=== PATIENT | female | born 1980 | race Caucasian/White ===

== ENCOUNTER 2017-12-01 11:13 | Emergency (ER) | payer OTHER ==
[~2017-12-01] VITALS: Ht 152.4 cm; Wt 86.0 kg
[2017-12-01] MEDS ORDERED: MAALOX/HYOSCYAMINE/LIDOCAINE 45 ML BTL ONE (11:42)
[2017-12-01] MEDS ORDERED: ONDANSETRON 2MG/ML, 2ML ONE (11:42)
[2017-12-01] MEDS ORDERED: MORPHINE SULFATE 4 MG/ML, 1ML ONE (11:42)
[2017-12-01] MEDS ORDERED: SODIUM CHLORIDE FLUSH 10ML SYR IVF ONE (12:00)
[2017-12-01] MEDS ORDERED: MAALOX/HYOSCYAMINE/LIDOCAINE 45 ML BTL PO ONE (12:00)
[2017-12-01] MEDS ORDERED: ONDANSETRON 2MG/ML, 2ML IVPush ONE (12:00)
[2017-12-01] MEDS ORDERED: MORPHINE SULFATE 4 MG/ML, 1ML IVPush PRN (12:00)
[2017-12-01 12:03] LABS: BASOPHILS # (AUTO) 0.21 x10^3/uL (0-0.1); BASOPHILS % (AUTO) 2 % (0-1); EOSINOPHILS # (AUTO) 0.13 x10^3/uL (0-0.4); EOSINOPHILS % (AUTO) 1 % (1-7); LYMPHOCYTES # (AUTO) 3.19 x10^3/uL (1-3.4); LYMPHOCYTES % (AUTO) 32 % (22-44); MD NO; MEAN CORPUSCULAR HEMOGLOBIN 31.8 pg (27.0-34.8); MEAN CORPUSCULAR HGB CONC 34.4 g/dL (32.4-35.8); MEAN CORPUSCULAR VOLUME 92.6 fL (80-100); MEAN PLATELET VOLUME 7.6 fL (7.4-10.4); MONOCYTES # (AUTO) 0.52 x10^3/uL (0.2-0.8); MONOCYTES % (AUTO) 5 % (2-9); NEUTROPHILS % (AUTO) 59 % (42-75); PLATELET COUNT 332 x10^3/uL (130-400); RED BLOOD COUNT 4.55 x10^6/uL (3.82-5.3); RED CELL DISTRIBUTION WIDTH 12.7 % (9.6-15.2)
[2017-12-01 12:13] LABS: ALANINE AMINOTRANSFERASE 53 U/L (12-78); ALBUMIN 3.7 g/dL (3.4-5.0); ANION GAP 9 mmol/L (5-15); CALCIUM 9.4 mg/dL (8.5-10.1); CHLORIDE 105 mmol/L (98-107); CREATININE 0.87 mg/dL (0.55-1.02)
[2017-12-01 12:15] LABS: ALKALINE PHOSPHATASE 94 U/L (45-117); BILIRUBIN,TOTAL 0.6 mg/dL (0.2-1.0); TOTAL PROTEIN 7.9 g/dL (6.4-8.2)
[2017-12-01 13:01] LABS: MICROSCOPIC AUTO
[2017-12-01 13:07] LABS: CULTURE INDICATED? NO
[2017-12-01 14:20] VITALS: BP 110/84
== END 2017-12-01 15:53 | disposition home or self-care (01) ==
LOC: ED 14:44
DX: R10.13 Epigastric pain (principal); R11.2 Nausea with vomiting, unspecified
CPT/HCPCS: 36415; 71045; 74176; 76700; 80053; 81001; 83690; 84703; 85025; 85379; 93005; 96374; 96375; 99285; J2405

== ENCOUNTER 2018-03-01 01:22 | Emergency (ER) | payer OTHER ==
[~2018-03-01] VITALS: Ht 154.9 cm; Wt 97.0 kg
[2018-03-01] MEDS ORDERED: ONDANSETRON 2MG/ML, 2ML ONE (02:25)
[2018-03-01] MEDS ORDERED: HYDROmorphone 2 MG/ML, 1ML ONE (02:26)
[2018-03-01] MEDS ORDERED: HYDROmorphone 2 MG/ML, 1ML IVPush PRN (02:30)
[2018-03-01] MEDS ORDERED: SODIUM CHLORIDE FLUSH 10ML SYR IVF ONE (02:30)
[2018-03-01] MEDS ORDERED: ONDANSETRON 2MG/ML, 2ML IVPush ONE ×2 (02:30→03:30)
--- NOTE | 2018-03-01 02:36 | NUR ---
IV ESTABLISHED. PT MEDICATED PER EMAR. 5 RIGHTS ADDRESSED.
--- NOTE | 2018-03-01 02:41 | NUR ---
PT TO US
[2018-03-01 02:45] LABS: BASOPHILS # (AUTO) 0.02 x10^3/uL (0-0.1); BASOPHILS % (AUTO) 0 % (0-1); EOSINOPHILS # (AUTO) 0.15 x10^3/uL (0-0.4); EOSINOPHILS % (AUTO) 2 % (1-7); LYMPHOCYTES # (AUTO) 2.27 x10^3/uL (1-3.4); LYMPHOCYTES % (AUTO) 29 % (22-44); MD NO; MEAN CORPUSCULAR HEMOGLOBIN 31.9 pg (27.0-34.8); MEAN CORPUSCULAR HGB CONC 34.5 g/dL (32.4-35.8); MEAN CORPUSCULAR VOLUME 92.4 fL (80-100); MEAN PLATELET VOLUME 7.3 fL (7.4-10.4); MONOCYTES # (AUTO) 0.61 x10^3/uL (0.2-0.8); MONOCYTES % (AUTO) 8 % (2-9); NEUTROPHILS # (AUTO) 4.67 x10^3/uL (1.8-6.8); NEUTROPHILS % (AUTO) 60 % (42-75); PLATELET COUNT 322 x10^3/uL (130-400); RED BLOOD COUNT 4.46 x10^6/uL (3.82-5.3); RED CELL DISTRIBUTION WIDTH 12.7 % (9.6-15.2)
[2018-03-01 02:58] LABS: ALBUMIN 3.4 g/dL (3.4-5.0); ANION GAP 6 mmol/L (5-15); CALCIUM 8.9 mg/dL (8.5-10.1); CHLORIDE 105 mmol/L (98-107)
[2018-03-01 03:02] LABS: ALANINE AMINOTRANSFERASE 34 U/L (12-78); ALKALINE PHOSPHATASE 90 U/L (45-117); BILIRUBIN,TOTAL 0.5 mg/dL (0.2-1.0); CREATININE 0.76 mg/dL (0.55-1.02); TOTAL PROTEIN 7.3 g/dL (6.4-8.2)
--- NOTE | 2018-03-01 03:08 | NUR ---
PT BACK FROM US, URINE SAMPLE PROVIDED BY PT. BACK TO BED WITHOUT DIFFICULTY
[2018-03-01 03:29] LABS: HCG UR SG 1.013 (1.003-1.030); MICROSCOPIC AUTO
[2018-03-01 03:30] LABS: CULTURE INDICATED? NO
--- NOTE | 2018-03-01 04:09 | NUR ---
PT SLEEPING. AWAITING PROVIDER TO COME UPDATE PT ON POC. VITALS STABLE. WILL CONTINUE TO MONITOR
[2018-03-01 04:10] VITALS: BP 98/61
--- NOTE | 2018-03-01 04:21 | NUR ---
DR. REN AT BEDSIDE UPDATING PT ON PLAN OF CARE
[2018-03-01] MEDS ORDERED: KETOROLAC 30 MG/1 ML IVPush ONE (04:30)
[2018-03-01] MEDS ORDERED: KETOROLAC 30 MG/1 ML ONE (04:44)
--- NOTE | 2018-03-01 04:55 | NUR ---
Patient/Caregiver given discharge instructions and they have confirmed that they understand the instructions. Patient ambulatory with steady gait.
--- NOTE | 2018-03-01 04:55 | NUR ---
PT MEDICATED PER EMAR. 5 RIGHTS ADDRESSED.
== END 2018-03-01 05:06 | disposition home or self-care (01) ==
LOC: ED 02:11
DX: K80.50 Calculus of bile duct without cholangitis or cholecystitis without obstruction (principal)
CPT/HCPCS: 36415; 76700; 80053; 81001; 81025; 83690; 85025; 93005; 96374; 96375; 99284; J1170; J1885; J2405

== ENCOUNTER 2018-03-09 14:19 | Day surgery (SDC) | payer OTHER ==
[~2018-03-09] VITALS: Ht 152.4 cm; Wt 94.0 kg
[2018-03-09] MEDS ORDERED: LACTATED RINGERS 1,000 ML IV SCH (14:45)
[2018-03-09 14:56] VITALS: BP 122/86
[2018-03-09] MEDS ORDERED: LIDOCAINE-MPF 1%, 2ML INFIL ONE (15:00)
[2018-03-09] MEDS ORDERED: ONDA4TAB7 PO (15:14)
[2018-03-09] MEDS ORDERED: HYDR-3240 PO ×2 (15:14)
[2018-03-09 15:19] LABS: HCG UR SG 1.025 (1.003-1.030)
[2018-03-09] MEDS ORDERED: BUPIVACAINE/PF-EPI 0.5% 1:200K ONE (17:01)
[2018-03-09] MEDS ORDERED: FENTANYL PF 250 MCG/5ML ONE (17:15)
[2018-03-09] MEDS ORDERED: MIDAZOLAM 1 MG/ML, 2ML ONE (17:15)
[2018-03-09] MEDS ORDERED: ONDANSETRON 2MG/ML, 2ML ONE (17:17)
[2018-03-09] MEDS ORDERED: PROPOFOL 10 MG/ML, 20ML ONE (17:17)
[2018-03-09] MEDS ORDERED: DEXAMETHASONE 4 MG/ML, 1ML ONE (17:17)
[2018-03-09] MEDS ORDERED: CEFAZOLIN 1,000 MG ONE (17:17)
[2018-03-09] MEDS ORDERED: ROCURONIUM 10 MG/ML,10ML ONE (17:17)
[2018-03-09] MEDS ORDERED: SUGAMMADEX 200 MG/2 ML IVPush ONE (17:40)
[2018-03-09] MEDS ORDERED: hydrALAzine 20 MG/ML, 1ML IV PRN (18:00)
[2018-03-09] MEDS ORDERED: ALBUTEROL SULFATE 2.5 MG/3 ML NPPB PRN (18:00)
[2018-03-09] MEDS ORDERED: MEPERIDINE/PF 25MG/0.5ML IVPush PRN (18:00)
[2018-03-09] MEDS ORDERED: DIAZEPAM 5 MG/ML, 2ML IVPush PRN (18:00)
[2018-03-09] MEDS ORDERED: PROMETHAZINE 25 MG/ML, 1ML IV PRN (18:00)
[2018-03-09] MEDS ORDERED: OXYcodone 5 MG/5 ML ORAL.SOL UDC PO PRN (18:00)
[2018-03-09] MEDS ORDERED: LABETALOL 5MG/ML, 20ML IV PRN (18:00)
[2018-03-09] MEDS ORDERED: ACETAMINOPHEN 325 MG TABLET PO PRN (18:00)
[2018-03-09] MEDS ORDERED: KETOROLAC 30 MG/1 ML ONE (18:20)
[2018-03-09] MEDS ORDERED: FENTANYL PF 100 MCG/2ML ONE (18:20)
[2018-03-09] MEDS ORDERED: OXYcodone 5 MG/5 ML ORAL.SOL UDC ONE (18:20)
[2018-03-09] MEDS: FENTANYL PF 100 MCG/2ML IV PRN ×2 (18:22→18:27)
[2018-03-09] MEDS ORDERED: HYDROmorphone 2 MG/ML, 1ML ONE (18:35)
[2018-03-09] MEDS: HYDROmorphone 2 MG/ML, 1ML IVPush PRN ×3 (18:35→19:13)
[2018-03-09] MEDS ORDERED: OXYcodone/APAP 5/325MG TABLET PO PRN (21:00)
== END 2018-03-09 23:04 | disposition home or self-care (01) ==
LOC: OR 14:19 → 4NOR 19:53 → OR 23:04
PROVIDERS: ATTEND Surgery
DX: K80.12 Calculus of gallbladder with acute and chronic cholecystitis without obstruction (principal); Z98.890 Other specified postprocedural states; Z87.891 Personal history of nicotine dependence; Z88.5 Allergy status to narcotic agent
CPT/HCPCS: 47562; 81025; 88304; J0690; J1100; J1170; J2250; J2405; J2704; J3010; J3360; J7120; G0378

== ENCOUNTER 2018-11-30 09:09 | Outpatient (CLI) | payer OTHER ==
[~2018-11-30 09:09] MED LIST: HYDR-3240 PO; ONDA4TAB7 PO
[2018-11-30 09:31] LABS: BASOPHILS # (AUTO) 0.03 x10^3/uL (0-0.1); BASOPHILS % (AUTO) 1 % (0-1); EOSINOPHILS # (AUTO) 0.13 x10^3/uL (0-0.4); EOSINOPHILS % (AUTO) 3 % (1-7); LYMPHOCYTES % (AUTO) 37 % (22-44); MD NO; MEAN CORPUSCULAR HEMOGLOBIN 23.6 pg (27.0-34.8); MEAN CORPUSCULAR HGB CONC 30.8 g/dL (32.4-35.8); MEAN CORPUSCULAR VOLUME 76.5 fL (80-100); MEAN PLATELET VOLUME 6.9 fL (7.4-10.4); MONOCYTES # (AUTO) 0.26 x10^3/uL (0.2-0.8); MONOCYTES % (AUTO) 6 % (2-9); NEUTROPHILS % (AUTO) 54 % (42-75); PLATELET COUNT 550 x10^3/uL (130-400); RED BLOOD COUNT 3.98 x10^6/uL (3.82-5.3)
== END 2018-11-30 23:59 | disposition home or self-care (01) ==
LOC: LAB 09:09
PROVIDERS: ATTEND Obstetrics & Gynecology
DX: N92.1 Excessive and frequent menstruation with irregular cycle (principal)
CPT/HCPCS: 36415; 82627; 82947; 83525; 84403; 84443; 85025

== ENCOUNTER → 2020-03-30 | Outpatient (CLI) | payer OTHER ==
[~2020-03-30] MED LIST changes: +ALPR0.5T7 PO; +BUPR-86 PO; +HYDR-1067 PO; -HYDR-3240 PO; +NORG1TAB77 PO
[2020-03-30 09:50] LABS: BASOPHILS % (AUTO) 1 % (0-1); EOSINOPHILS % (AUTO) 1 % (1-7); LYMPHOCYTES % (AUTO) 35 % (22-44); MD NO; MEAN CORPUSCULAR HEMOGLOBIN 31.6 pg (27.0-34.8); MEAN CORPUSCULAR HGB CONC 34.3 g/dL (32.4-35.8); MONOCYTES % (AUTO) 4 % (2-9); NEUTROPHILS % (AUTO) 60 % (42-75); PLATELET COUNT 395 x10^3/uL (130-400); RED BLOOD COUNT 4.65 x10^6/uL (3.82-5.3)
[2020-03-30 10:00] LABS: ALBUMIN 3.7 g/dL (3.4-5.0); ANION GAP 7 mmol/L (5-15); CHLORIDE 111 mmol/L (98-107)
[2020-03-30 10:27] LABS: % IRON SATURATION 22 % (20-55); ALANINE AMINOTRANSFERASE 21 U/L (12-78); ALKALINE PHOSPHATASE 88 U/L (45-117); BILIRUBIN,TOTAL 0.6 mg/dL (0.2-1.0); CHOL/HDL RATIO 2.4; CHOLESTEROL, TOTAL 124 mg/dL (140-239); CREATININE 1.01 mg/dL (0.55-1.02); HDL CHOL % 41 % (28-40); HDL CHOLESTEROL (DIRECT) 51 mg/dL (40-60); IRON LEVEL 98 mcg/dL (50-170); LDL CHOLESTEROL,CALCULATED 51 mg/dL (54-169); PREALBUMIN 25.8 mg/dL (20.0-40.0); TOTAL IRON BINDING CAPACITY 445 mcg/dL (250-450); TRANSFERRIN 359 mg/dL (200-360); TRIGLYCERIDES 111 mg/dL (50-200); VLDL CHOLESTEROL 22 mg/dL (0-25)
== END | disposition home or self-care (01) ==
LOC: STAR 08:44
PROVIDERS: ATTEND Thoracic Surgery (Cardiothoracic Vascular Surgery)
DX: Z01.818 Encounter for other preprocedural examination (principal); R94.31 Abnormal electrocardiogram [ECG] [EKG]; Z20.822 Contact with and (suspected) exposure to COVID-19
CPT/HCPCS: 71046; 80053; 80061; 82306; 82607; 82728; 83540; 83550; 83970; 84134; 84425; 84466; 85025; 87635; 93005

== ENCOUNTER 2020-04-05 06:32 | Inpatient (IN) | payer OTHER ==
[~2020-04-05] VITALS: Ht 152.4 cm; Wt 100.0 kg
[2020-04-05] MEDS ORDERED: BUPIVACAINE/PF 0.5% ONE (06:59)
[2020-04-05] MEDS ORDERED: EPINEPHRINE 1 MG/ML, 1ML ONE (06:59)
[2020-04-05] MEDS ORDERED: ACETAMINOPHEN 325 MG TABLET PO PRN (07:30)
[2020-04-05] MEDS ORDERED: EPHEDRINE 50 MG/ML, 1ML IVPush PRN (07:30)
[2020-04-05] MEDS ORDERED: ONDANSETRON 2MG/ML, 2ML IVPush PRN ×2 (07:30→10:00)
[2020-04-05] MEDS ORDERED: FENTANYL PF 100 MCG/2ML IV PRN (07:30)
[2020-04-05] MEDS ORDERED: LABETALOL 5MG/ML, 20ML IV PRN (07:30)
[2020-04-05] MEDS ORDERED: PROMETHAZINE 25 MG/ML, 1ML IVPush PRN (07:30)
[2020-04-05] MEDS ORDERED: hydrALAzine 20 MG/ML, 1ML IV PRN (07:30)
[2020-04-05] MEDS ORDERED: OXYcodone 5 MG/5 ML ORAL.SOL UDC PO PRN (07:30)
[2020-04-05] MEDS ORDERED: SCOPOLAMINE 1MG PATCH TD ONE ×2 (07:44→08:00)
[2020-04-05 07:58] LABS: HCG UR SG 1.033 (1.003-1.030)
[2020-04-05] MEDS ORDERED: ACETAMINOPHEN 100 ML IVPB ONE (08:00)
[2020-04-05] MEDS ORDERED: LIDOCAINE-MPF 1%, 2ML INFIL ONE (08:00)
[2020-04-05] MEDS ORDERED: LACTATED RINGERS 1,000 ML IV SCH (08:00)
[2020-04-05] MEDS ORDERED: CHLORHEXIDINE 15 ML UDC MM ONE (08:00)
[2020-04-05] MEDS ORDERED: MIDAZOLAM 1 MG/ML, 2ML ONE (08:35)
[2020-04-05] MEDS ORDERED: FENTANYL PF 100 MCG/2ML ONE ×3 (08:35→10:19)
[2020-04-05] MEDS ORDERED: CEFAZOLIN 1,000 MG ONE (08:38)
[2020-04-05] MEDS ORDERED: ROCURONIUM 10MG/ML,5ML ONE (08:38)
[2020-04-05] MEDS ORDERED: ONDANSETRON 2MG/ML, 2ML ONE (08:38)
[2020-04-05] MEDS ORDERED: DEXAMETHASONE 4 MG/ML, 5ML ONE (08:38)
[2020-04-05] MEDS ORDERED: PROPOFOL 10 MG/ML, 20ML ONE (08:38)
[2020-04-05] MEDS ORDERED: SUCCINYLCHOLINE 20 MG/ML, 10ML ONE (08:38)
[2020-04-05] MEDS ORDERED: LIDOCAINE-MPF 2% ,5ML ONE (08:39)
[2020-04-05] MEDS ORDERED: SODIUM CHLORIDE 0.9% PF 10ML ONE (08:39)
[2020-04-05] MEDS ORDERED: SUGAMMADEX 200 MG/2 ML IVPush ONE (08:58)
[2020-04-05] MEDS ORDERED: KETOROLAC 30 MG/1 ML ONE (08:58)
[2020-04-05] MEDS ORDERED: ENALAPRILAT 1.25 MG/ML, 2ML IV PRN (10:00)
[2020-04-05] MEDS ORDERED: PHENOL THROAT SPRAY BOTTLE MM PRN (10:00)
[2020-04-05] MEDS ORDERED: LACTATED RINGERS 500 ML IVBOLUS PRN (10:00)
[2020-04-05] MEDS ORDERED: PROMETHAZINE 25 MG/ML, 1ML IM PRN (10:00)
[2020-04-05] MEDS ORDERED: LORazepam 2 MG/ML, 1ML IV PRN (10:00)
[2020-04-05] MEDS ORDERED: DIPHENHYDRAMINE 50 MG/ML, 1ML IV PRN (10:00)
[2020-04-05] MEDS ORDERED: hydrALAzine 20 MG/ML, 1ML IVPush PRN (10:00)
[2020-04-05] MEDS ORDERED: METHOCARBAMOL 1,000 MG in DEXTROSE 5% 100 ML IV ONE (10:00)
[2020-04-05] MEDS ORDERED: PROMETHAZINE 25 MG/ML, 1ML ONE (10:06)
[2020-04-05] MEDS ORDERED: OXYcodone 5 MG/5 ML ORAL.SOL UDC ONE (10:20)
[2020-04-05] MEDS ORDERED: HYDROmorphone 1 MG/ML, 1ML INJ ONE (10:36)
[2020-04-05] MEDS: HYDROmorphone 1 MG/ML, 1ML INJ IVPush PRN ×2 (10:41→10:59)
[2020-04-05] MEDS: LACTATED RINGERS 1,000 ML IV SCH ×2 (11:43→18:41)
[2020-04-05] MEDS: FAMOTIDINE 20 MG/2 ML IVPush SCH ×2 (12:42→22:14)
[2020-04-05] MEDS: morphine SULFATE 10 MG/ML, 1ML IVPush PRN ×2 (12:51→20:32)
[2020-04-05 12:55] VITALS: BP 125/86
[2020-04-05] MEDS: ACETAMINOPHEN 100 ML IVPB SCH ×2 (14:57→22:14)
[2020-04-05] MEDS: KETOROLAC 30 MG/1 ML IVPush PRN ×2 (17:15→23:22)
[2020-04-05 19:58] VITALS: BP 109/76
[2020-04-05] MEDS: OXYcodone IR 5MG TABLET PO PRN (20:32)
[2020-04-06 00:13] VITALS: BP 108/74
[2020-04-06] MEDS: LACTATED RINGERS 1,000 ML IV SCH ×3 (01:44→17:00)
[2020-04-06] MEDS: OXYcodone IR 5MG TABLET PO PRN ×4 (01:46→17:30)
[2020-04-06] MEDS: ACETAMINOPHEN 100 ML IVPB SCH (04:13)
[2020-04-06 04:20] VITALS: BP 114/66
[2020-04-06 05:55] LABS: BASOPHILS % (AUTO) 0 % (0-1); EOSINOPHILS % (AUTO) 0 % (1-7); LYMPHOCYTES % (AUTO) 26 % (22-44); MEAN CORPUSCULAR HEMOGLOBIN 31.4 pg (27.0-34.8); MEAN CORPUSCULAR HGB CONC 33.9 g/dL (32.4-35.8); MEAN PLATELET VOLUME 7.6 fL (7.4-10.4); MONOCYTES % (AUTO) 8 % (2-9); NEUTROPHILS % (AUTO) 66 % (42-75); PLATELET COUNT 290 x10^3/uL (130-400); RED BLOOD COUNT 3.93 x10^6/uL (3.82-5.3); RED CELL DISTRIBUTION WIDTH 12.9 % (9.6-15.2)
[2020-04-06 05:56] LABS: MD NO
[2020-04-06 06:00] LABS: ALBUMIN 2.8 g/dL (3.4-5.0); ANION GAP 10 mmol/L (5-15); CALCIUM 7.9 mg/dL (8.5-10.1); CHLORIDE 106 mmol/L (98-107); CREATININE 0.81 mg/dL (0.55-1.02)
[2020-04-06 07:10] VITALS: BP 124/74
[2020-04-06] MEDS: FAMOTIDINE 20 MG/2 ML IVPush SCH (08:47)
[2020-04-06] MEDS: ENOXAPARIN 40 MG/0.4 ML SQ SCH (13:20)
[2020-04-06 14:42] VITALS: BP 115/77
[2020-04-06 19:07] VITALS: BP 111/68
[2020-04-06] MEDS: FAMOTIDINE 20 MG TABLET PO SCH (21:00)
[2020-04-06] MEDS: morphine SULFATE 10 MG/ML, 1ML IVPush PRN (23:38)
[2020-04-07 01:00] VITALS: BP 119/73
[2020-04-07] MEDS: LACTATED RINGERS 1,000 ML IV SCH ×2 (01:00→08:34)
[2020-04-07] MEDS: OXYcodone IR 5MG TABLET PO PRN (04:30)
[2020-04-07 07:37] VITALS: BP 104/73
[2020-04-07] MEDS: KETOROLAC 30 MG/1 ML IVPush PRN (08:33)
[2020-04-07] MEDS: FAMOTIDINE 20 MG TABLET PO SCH (08:33)
[2020-04-07] MEDS: ENOXAPARIN 40 MG/0.4 ML SQ SCH (11:28)
[2020-04-07 12:43] VITALS: BP 112/74
== END 2020-04-07 13:54 | disposition home or self-care (01) | DRG 621 ==
LOC: ORIP 06:32 → 4NE 11:37 → DCLOUNGE 04-07 13:44
PROVIDERS: ADMIT Thoracic Surgery (Cardiothoracic Vascular Surgery); ATTEND Thoracic Surgery (Cardiothoracic Vascular Surgery)
PROC: 0DB64Z3 Excision of Stomach, Percutaneous Endoscopic Approach, Vertical (ICD-10-PCS; principal; 2020-04-05 09:00)
DX: E66.01 Morbid (severe) obesity due to excess calories (principal); F32.9 Major depressive disorder, single episode, unspecified; G89.29 Other chronic pain; M54.9 Dorsalgia, unspecified; R53.83 Other fatigue; Z68.41 Body mass index [BMI] 40.0-44.9, adult
CPT/HCPCS: 36415; J3490; S0020; 80048; 81025; 82040; 85025; G0378; J0131; J0171; J0690; J1100; J1170; J1650; J1885; J2250; J2405; J2550; J2704; J3010; J0330; J1200; J2060; J2270; J2800; J7120